=== PATIENT | female | born 1930 | race Asian ===

== ENCOUNTER 2018-01-17 13:38 | Emergency (ER) | payer OTHER ==
[~2018-01-17] VITALS: Ht 160 cm; Wt 72.6 kg
[~2018-01-17 13:38] MED LIST: ACET-704 PO
[2018-01-17 14:46] VITALS: BP 176/100
--- NOTE | 2018-01-17 16:03 | PHYS DOC ---
Past Medical History Past Medical History: Asthma, CVA, Depression, Hypertension Past Surgical History: No Surgical History Alcohol Use: None Drug Use: None Adult General Chief Complaint Chief Complaint: MECHANICAL FALL HPI HPI Patient is a 87 year old female with history of depression, asthma, hypertension, CVA, who presents today with right foot injury per family they state patient fell last night. No loss of consciousness, family denies patient hitting her head on the ground. She is complaining of mild right foot pain. Review of Systems Review of Systems Constitutional: Denies fever or chills [] Musculoskeletal: Reports right foot pain. Integument: Denies rash or skin lesions [] Neurologic: Denies headache, focal weakness or sensory changes [] All other systems were reviewed and found to be within normal limits, except as documented in this note. Allergies Allergies Allergies Coded Allergies Type Severity Reaction Last Updated Verified No Known Drug Allergies 04/14/17 No Physical Exam Physical Exam Constitutional: Well developed, well nourished, no acute distress, non-toxic appearance. [] Skin: Warm, dry, no erythema, no rash. [] Back: No tenderness, no CVA tenderness. [] Extremities: Right foot with no obvious deformity. Soft tissue swelling noted at the right great toe. Full range of motion to the right foot and toes. +2 right pedal pulse. Cap refill less than 2 seconds the right toes. Neurologic: Alert and oriented X 3, normal motor function, normal sensory function, no focal deficits noted. [] Psychologic: Affect normal, judgement normal, mood normal. [] Current Patient Data Vital Signs Vital Signs Date Time Temp Pulse Resp B/P (MAP) Pulse Ox O2 Delivery O2 Flow Rate FiO2 01/17/18 14:46 98.4 89 20 176/100 (125) 93 Room Air 98.4 EKG EKG [] Radiology/Procedures Radiology/Procedures []PROCEDURE: FOOT RIGHT 3V Right foot 3 views. HISTORY: Pain and swelling 3 views were taken of the right foot. There is mild soft tissue swelling. There is no fracture or bony destructive process. IMPRESSION: 1. Soft tissue swelling right foot. 2. No fracture or acute bony destructive process. Electronically signed by: Stevenson Nicholas MD (01/17/2018 4:10 PM) [id number] DICTATED and SIGNED BY: STEVENSON NICHOLAS MD DATE: 01/17/18 1610 Course & Med Decision Making Course & Med Decision Making Pertinent Labs and Imaging studies reviewed. (See chart for details) This is a 87-year-old female patient presenting to the ED today with right foot pain after falling last night. Right foot x-rays interpreted by radiologist are negative for any acute findings, although she'll play to the right foot by me. Neurovascular exam is intact, ice elevation encouraged, discharge with Voltaren cream. Ice elevation encouraged. Follow-up with PCP or orthopedic doctor in one week if pain continues Dragon Disclaimer Dragon Disclaimer This electronic medical record was generated, in whole or in part, using a voice recognition dictation system. Departure Departure Impression: Primary Impression: Fall Additional Impression: Right foot sprain Disposition: HOME, SELF-CARE Condition: STABLE Referrals: RADHA ESPARZA MD (PCP) Follow-up in one week Patient Instructions: Fall Prevention and Home Safety, [id number] Additional Instructions: Chris was seen for right foot pain. Encourage her to Ic/ elevate the extremity, use the prescribed cream as ordered. Follow-up with your doctor in one week if pain continues. Scripts Diclofenac Sodium (VOLTAREN) 100 Gm Gel..gram. 1 GM TP QID, #100 GM 2 Refills Prov: ARRON PARRA APRN 01/17/18 Problem Qualifiers Primary Impression: Fall Encounter type: initial encounter Qualified Codes: W19.XXXA - Unspecified fall, initial encounter Additional Impression: Right foot sprain Encounter type: initial encounter Qualified Codes: S93.601A - Unspecified sprain of right foot, initial encounter ARRON PARRA APRN Jan 17, 2018 16:03
--- NOTE | 2018-01-17 16:14 | RAD ---
Right foot 3 views. HISTORY: Pain and swelling 3 views were taken of the right foot. There is mild soft tissue swelling. There is no fracture or bony destructive process. IMPRESSION: 1. Soft tissue swelling right foot. 2. No fracture or acute bony destructive process. Electronically signed by: Stevenson Jasso MD (01/17/2018 4:10 PM) [id number]
[2018-01-17] MEDS ORDERED: DICL100G18 TP (16:21)
== END 2018-01-17 16:44 | disposition home or self-care (01) ==
LOC: ER 13:38
DX: S93.601A Unspecified sprain of right foot, initial encounter (principal); I10 Essential (primary) hypertension; J45.909 Unspecified asthma, uncomplicated; Z86.73 Personal history of transient ischemic attack (TIA), and cerebral infarction without residual deficits; W18.39XA Other fall on same level, initial encounter; Y99.8 Other external cause status; Y93.89 Activity, other specified; Y92.89 Other specified places as the place of occurrence of the external cause
CPT/HCPCS: 73630; 99284-25